=== PATIENT | male | born 1950 | race Caucasian/White ===

== ENCOUNTER → 2021-04-05 | Outpatient (CLI) | payer MEDICARE ==
--- NOTE | 2021-04-05 08:39 | Diagnostic Imaging Report ---
INDICATION: Sharp right-sided headaches with near syncope. TECHNIQUE: Multiple contiguous axial images were obtained through the brain without the use of intravenous contrast. Auto Exposure Controls were utilized during the CT exam to meet ALARA standards for radiation dose reduction. There is no prior study for comparison. There were no extra-axial fluid collections. No intracranial hemorrhage. No intracranial mass or mass effect. No midline shift. The ventricles are normal in size and position. There were no focal parenchymal abnormalities in the brain. Visualized portions of the sinuses show some ethmoid mucosal thickening. Orbital contents are unremarkable. IMPRESSION: No acute intracranial abnormality. There is some mucosal thickening in the ethmoid air cells. Dictated by: Dictated on workstation # [id number]
== END ==
LOC: RAD FS 08:10
PROVIDERS: ATTEND Family Medicine
DX: J34.89 Other specified disorders of nose and nasal sinuses (principal); M79.2 Neuralgia and neuritis, unspecified
CPT/HCPCS: 70450